=== PATIENT | male | born 1945 | race Caucasian/White ===

== ENCOUNTER 2018-04-15 09:41 | Emergency (ER) | payer MEDICARE, SELFPAY ==
--- NOTE | 2018-04-15 09:35 | DI.CT_ITS ---
SYMPTOM/DIAGNOSIS: LEFT SIDED WEAKNESS, LAST NIGHT CRANIAL CT: 04/[address] was performed. There is mild generalized cerebral atrophy. There is no evidence of acute intracranial hemorrhage, mass effect or midline shift. Note is made of increased radiodensity of right middle cerebral artery raising the possibility of embolic or thrombotic phenomenon. The orbital and temporal bone structures appear intact. CONCLUSION: No evidence of acute intracranial hemorrhage. Findings raising the possibility of acute thrombus or embolus of right middle cerebral artery. The findings were discussed with Dr. Grimes and CT angiography of the head and neck is planned.
[2018-04-15 10:03] VITALS: BP 140/75; PULSE 82; RESP 20; TEMP 36.4; O2SAT 98
--- NOTE | 2018-04-15 10:09 | W.ED.GENAD ---
Discharge Plan Discharge Details Chief Complaint: CVA/TIA Reason For Visit: SEVEN Primary Care Provider: Shefali Chilel ED Provider: Jcalros Grimes Home Meds and New Rx's Prescriptions: No Action losartan 50 mg Tablet 50 mg PO BID RF: 0 aspirin 325 mg Tablet 325 mg PO DAILY RF: 0 tamsulosin 0.4 mg Capsule 0.8 mg/day PO DAILY RF: 0 atenolol 50 mg Tablet 50 mg PO DAILY RF: 0 Discharge Data Discharge Date/Time-TO BE ENTERED AT DEPARTURE: 04/15/18 12:01 Medical Decision Making 10:15 --patient was seen immediately on arrival and rushed to stat CT of the head. CT reviewed and interpreted by me: Atrial fibrillation 75 bpm, normal axis, QRS duration 96. 72-year-old male with history of atrial fibrillation, hypertension, recently diagnosed thoracic aortic aneurysm at 5.4 cm with plan for urgent surgery that is yet to be scheduled, here today with severe left-sided weakness and left facial droop that started sometime after 9 PM last night. NIH stroke scale 10. 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 Plan for CTA of the head neck and will also obtain chest and abdomen to assess aneurysm. Patient received full dose aspirin by family prior to EMS arrival. He is outside therapeutic window for thrombolytic. He still is within window for clot extraction. I have called [facility] to request stat transfer for neurologic evaluation. 10:51 -- Spoke with Dr. Diaz neurology: will accept in transfer. Recommends NS 250ml bolus. Checking on [facility] air. 11:04 -- [facility] available and will be flying to accept patient. -- Spoke with Dr. Weiner - [facility] who will accept patient. 11:10 -- Spoke with radiology: Included right MCA M1 segment. 53 mm ascending aortic aneurysm without dissection. Incidental right lung nodules noted with recommended follow-up CT in 6 months HPI General Mode of arrival: ambulatory. Date/Time Provider Initiated Documentation: 04/15/18 09:59. Limitations to Documentation: no limitations. Information obtained by: patient. HPI Narrative: 72yo m with recently diagnosed 5.4 cm thoracic aortic aneurysm, hypertension, atrial fibrillation, presents with left-sided weakness. Patient apparently was last normal at 9 PM last night. He did have a fall last night. Family noted that left facial droop this AM with left sided weakness at 4am. Symptoms persisted this AM and EMS was called. Symptoms severe. No modifiers. Patient denies associated chest pain. Related Data Home Medications Medication Instructions Recorded Confirmed aspirin 325 mg PO DAILY 04/15/18 04/15/18 atenolol 50 mg PO DAILY 04/15/18 04/15/18 losartan 50 mg PO BID 04/15/18 04/15/18 tamsulosin 0.8 mg/day PO DAILY 04/15/18 04/15/18 Allergies Allergy/AdvReac Type Severity Reaction Status Date / Time No Known Allergies Allergy Unverified 04/15/18 10:18 General Stated Complaint: CVA/TIA CHULA: 2 Review of Systems Review of Systems All systems reviewed & are unremarkable except as noted in HPI and below Neurologic Reports as per HPI PFSH Medical History Atrial fibrillation (Chronic) Hypertension (Chronic) Thoracic aortic aneurysm (Chronic) Social History Smoking/Tobacco Use Status: Never Exam Const General: cooperative and no acute distress HENMT Head: normocephalic and atraumatic Mouth: moist mucous membranes Eyes Conjunctivae: normal conjunctivae Sclera: normal sclerae EOM: EOM intact bilaterally Neck Neck: trachea midline and supple Resp Auscultation: clear to auscultation bilaterally, no rales, no rhonchi and no wheezes Cardio Jugular venous pressure: no JVD Rate: regular rate and not tachycardic Rhythm: regular rhythm Heart Sounds: murmur systolic III/ GI Palpation: soft, not firm, no guarding, no masses, not rigid and nontender Skin General skin exam: no rashes or lesions noted Neuro General: alert, oriented x3 and tone normal Cranial Nerves: other (asleep but arousable) Cognition: normal cognition Speech: speech normal Motor: other (0/5 LUE; 2/5 LLE, eye deviation to right) Sensory Exam: no sensory deficits noted Extrem General: no edema Psych Appearance: grossly normal Course Vital Signs Temperature 36.4 C L 04/15/18 10:03 Pulse 82 04/15/18 10:03 Respiratory Rate 20 04/15/18 10:03 Blood Pressure 140/75 04/15/18 10:03 Pulse Oximetry 98 04/15/18 10:03 Temperature 36.4 C L 04/15/18 10:03 Temperature Source Skin 04/15/18 10:03 Pulse 82 04/15/18 10:03 Respiratory Rate 20 04/15/18 10:03 Respiratory Effort 04/15/18 10:03 Blood Pressure 140/75 04/15/18 10:03 Pulse Oximetry 98 04/15/18 10:03 Oxygen Delivery Method Room Air 04/15/18 10:03 Oxygen Flow Rate 0 04/15/18 10:03
[2018-04-15 10:11] LABS: Abs Immature Grans 0.01 k/cumm (0.0-0.09); Absolute Basophil Count 0.04 k/cumm (0.0-0.2); Absolute Eosinophil Count 0.26 k/cumm (0.0-0.7); Absolute Lymphocyte Count 1.85 k/cumm (1.2-3.4); Absolute Neutrophil Count 5.05 k/cumm (1.2-6.7); Basophils % 0.5; Eosinophils % 3.3; HCT 44.4 % (40.0-50.0); HGB 14.9 g/dL (13.5-17.5); Immature Grans % 0.1; Lymphocytes % 23.4; Mean Corp. HGB Concentration 33.6 g/dL (32.0-36.0); Mean Corpuscular Hemoglobin 33.8 pg (27.0-33.0); Mean Corpuscular Volume 100.7 fL (80-95); Mean Platelet Volume 11.7 fL (8.0-11.0); Monocytes % 8.8; Neutrophils % 63.9; Platelet Count 160 x1000/uL (130-400); RBC 4.41 m/cumm (4.50-6.00); RBC Distribution Width 12.6 % (11.8-14.1); White Blood Cell Count 7.91 k/cumm (4.4-10.8)
[2018-04-15 10:12] VITALS: BP 133/76; PULSE 77; RESP 20; O2SAT 94
--- NOTE | 2018-04-15 10:12 | ED.GENADUL_ITS ---
Discharge Plan Discharge Details Chief Complaint: CVA/TIA Reason For Visit: SEVEN Primary Care Provider: Shefali Chilel ED Provider: Jcarlos Grimes Home Meds and New Rx's Prescriptions: No Action losartan 50 mg Tablet 50 mg PO BID RF: 0 aspirin 325 mg Tablet 325 mg PO DAILY RF: 0 tamsulosin 0.4 mg Capsule 0.8 mg/day PO DAILY RF: 0 atenolol 50 mg Tablet 50 mg PO DAILY RF: 0 Discharge Data Discharge Date/Time-TO BE ENTERED AT DEPARTURE: 04/15/18 12:01 Medical Decision Making 10:15 --patient was seen immediately on arrival and rushed to stat CT of the head. CT reviewed and interpreted by me: Atrial fibrillation 75 bpm, normal axis, QRS duration 96. 72-year-old male with history of atrial fibrillation, hypertension, recently diagnosed thoracic aortic aneurysm at 5.4 cm with plan for urgent surgery that is yet to be scheduled, here today with severe left-sided weakness and left facial droop that started sometime after 9 PM last night. NIH stroke scale 10. 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 Plan for CTA of the head neck and will also obtain chest and abdomen to assess aneurysm. Patient received full dose aspirin by family prior to EMS arrival. He is outside therapeutic window for thrombolytic. He still is within window for clot extraction. I have called [facility] to request stat transfer for neurologic evaluation. 10:51 -- Spoke with Dr. Diaz neurology: will accept in transfer. Recommends NS 250ml bolus. Checking on [facility] air. 11:04 -- [facility] available and will be flying to accept patient. -- Spoke with Dr. Weiner - [facility] who will accept patient. 11:10 -- Spoke with radiology: Included right MCA M1 segment. 53 mm ascending aortic aneurysm without dissection. Incidental right lung nodules noted with recommended follow-up CT in 6 months HPI General Mode of arrival: ambulatory . Date/Time Provider Initiated Documentation: 04/15/18 09:59 . Limitations to Documentation: no limitations . Information obtained by: patient . HPI Narrative: 72yo m with recently shena gnosed 5.4 cm thoracic aortic aneurysm, hypertension, atrial fibrillation, presents with left-sided weakness. Patient apparently was last normal at 9 PM last night. He did have a fall last night. Family noted that left facial droop this AM with left sided weakness at 4am. Symptoms persisted this AM and EMS was called. Symptoms severe. No modifiers. Patient denies associated chest pain. Related Data Home Medications Medication Instructions Recorded Confirmed aspirin 325 mg PO DAILY 04/15/18 04/15/18 atenolol 50 mg PO DAILY 04/15/18 04/15/18 losartan 50 mg PO BID 04/15/18 04/15/18 tamsulosin 0.8 mg/day PO DAILY 04/15/18 04/15/18 Allergies Allergy/AdvReac Type Severity Reaction Status Date / Time No Known Allergies Allergy Unverified 04/15/18 10:18 General Stated Complaint: CVA/TIA CHULA: 2 Review of Systems Review of Systems All systems reviewed & are unremarkable except as noted in HPI and below Neurologic Reports as per HPI PFSH Medical History Atrial fibrillation (Chronic) Hypertension (Chronic) Thoracic aortic aneurysm (Chronic) Social History Smoking/Tobacco Use Status: Never Exam Const General: cooperative and no acute distress HENMT Head: normocephalic and atraumatic Mouth: moist mucous membranes Eyes Conjunctivae: normal conjunctivae Sclera: normal sclerae EOM: EOM intact bilaterally Neck Neck: trachea midline and supple Resp Auscultation: clear to auscultation bilaterally, no rales, no rhonchi and no wheezes Cardio Jugular venous pressure: no JVD Rate: regular rate and not tachycardic Rhythm: regular rhythm Heart Sounds: murmur systolic III/ GI Palpation: soft, not firm, no guarding, no masses, not rigid and nontender Skin General skin exam: no rashes or lesions noted Neuro General: alert, oriented x3 and tone normal Cranial Nerves: other (asleep but arousable) Cognition: normal cognition Speech: speech normal Motor: other (0/5 LUE; 2/5 LLE, eye deviation to right) Sensory Exam: no sensory deficits noted Extrem General: no edema Psych Appearance: grossly normal Course Vital Signs Temperature 36.4 C L 04/15/18 10:03 Pulse 82 04/15/18 10:03 Respiratory Rate 20 04/15/18 10:03 Blood Pressure 140/75 04/15/18 10:03 Pulse Oximetry 98 04/15/18 10:03 Temperature 36.4 C L 04/15/18 10:03 Temperature Source Skin 04/15/18 10:03 Pulse 82 04/15/18 10:03 Respiratory Rate 20 04/15/18 10:03 Respiratory Effort 04/15/18 10:03 Blood Pressure 140/75 04/15/18 10:03 Pulse Oximetry 98 04/15/18 10:03 Oxygen Delivery Method Room Air 04/15/18 10:03 Oxygen Flow Rate 0 04/15/18 10:03
--- NOTE | 2018-04-15 10:12 | NUR.NOTE ---
patient arrived to ER at 0940, assessed on ems stretcher by MD, patient to CT, returned to room 2 labs sent ekg done fsbs documented. patient to have CTA Nursing Note:
[2018-04-15 10:30] LABS: ALT 24 U/L (12-78); AST 24 U/L (15-37); Albumin 3.5 g/dL (3.4-5.0); Alkaline Phosphatase 61 U/L (46-116); Anion Gap 7.2 mmol/L (3-11); BUN 21 mg/dL (7-18); Bilirubin, Total 1.4 mg/dL (0.2-1.0); CO2 28.8 mmol/L (21.0-32.0); CREATININE 1.22 mg/dL (0.70-1.30); Calcium 9.6 mg/dL (8.5-10.1); Chloride 104 mmol/L (98-107); Estimated GFR 58.23 (mL/min/1.73m2); Glucose 132 mg/dL (70-100); Potassium 4.4 mmol/L (3.5-5.1); Sodium 140 mmol/L (136-145); Total Protein 7.3 g/dL (6.4-8.2)
[2018-04-15 10:37] LABS: Troponin I 1.18 ng/mL (0.00-0.06)
--- NOTE | 2018-04-15 10:45 | DI.CT_ITS ---
SYMPTOMS/DIAGNOSIS: LEFT-SIDED WEAKNESS, CT WITH EMBOLISM CT ANGIOGRAPHY, NECK AND BRAIN: CT angiography was performed with multi slice acquisition and multi planar and 3D reconstruction. CT angiography was performed from the level of the aortic arch to the cerebral vertex. There is mild atheromatous calcified plaque of the aortic arch. No aortic aneurysm or dissection. There is a left dominant vertebral circulation with a very small right vertebral artery. No occlusion, aneurysm or dissection of the vertebral arteries. The basilar artery is supplied predominantly from left vertebral artery. No evidence of an aneurysm, dissection or occlusion of the basilar artery. The posterior cerebral arteries are quite small bilaterally, but appear patent and no aneurysm is seen. Common carotid arteries are unremarkable in appearance bilaterally. Internal carotid arteries appear intact through their extracranial and intracranial extent with no evidence of occlusion, dissection or stenosis. Left middle and anterior cerebral arteries and major branches appear intact. Right middle cerebral artery appears to be occluded in the M1 segment, as suspected on noncontrast CT. There is reconstitution of sylvian and parietal branches of the right middle cerebral artery. No gross cervical mass or adenopathy seen. No superior mediastinal adenopathy. Visualized portions of the lung apices are clear. Tracheolaryngeal structures appear intact. CONCLUSION: Findings consistent with occlusion of right middle cerebral artery M1 segment. CT ANGIOGRAPHY, CHEST AND ABDOMEN: CT angiography was performed with multi slice acquisition and multi planar and 3D reconstruction. CT angiography of the chest and abdomen was performed with a bolus infusion of 100 cc of Omnipaque 350. The lungs are predominantly clear with some questionable curvilinear or nodular radiodensities at the right lung base measuring up to about 7 mm in diameter. No previous CT available for comparison at this time. No consolidation seen in the lungs. The tracheobronchial tree appears intact. No mediastinal or hilar adenopathy seen. There is an ascending aortic aneurysm measuring 53 mm in greatest diameter. Aortic arch diameter is about 34 mm. No evidence of dissection or leakage. In the abdomen, there is no evidence of an abdominal aortic aneurysm or aneurysm of the common iliac arteries. Major branches of the abdominal aorta including celiac trunk, SMA, ANGELLA and renal arteries appear within normal limits with no evidence of occlusion or dissection. Liver, spleen and pancreas appear intact as visualized. Kidneys and adrenals are unremarkable. No abdominal adenopathy seen. No evidence of bowel obstruction. CONCLUSION: A 53 mm in diameter ascending aortic aneurysm. No evidence of dissection or leakage. Incidental questionable nodules of right lung base, CT followup recommended in six months.
[2018-04-15] MEDS: Omnipaque 350 MG/ML 100 ML BTL IJ (10:48)
[2018-04-15 11:07] VITALS: BP 145/67; PULSE 75; RESP 19; O2SAT 96
--- NOTE | 2018-04-15 11:08 | NUR.NOTE ---
patient returned from Ct, contiued left arm flaccid, left leg weakness and left sided facial droop, patient is drwosy Nursing Note:
[2018-04-15] MEDS: Normal Saline 250 ML 500 ML IV (11:10)
[2018-04-15 11:57] VITALS: BP 130/90; PULSE 78; RESP 18; O2SAT 95
--- NOTE | 2018-04-15 11:57 | NUR.NOTE ---
report given to [facility] flight crew, patient to be transfered in care of [facility], report given to Wing [facility] RN Nursing Note:
== END 2018-04-15 12:01 ==
PROVIDERS: Emergency Provider Student in an Organized Health Care Education/Training Program; PCP Internal Medicine
DX: I63.411 Cerebral infarction due to embolism of right middle cerebral artery (principal); I69.392 Facial weakness following cerebral infarction; I69.354 Hemiplegia and hemiparesis following cerebral infarction affecting left non-dominant side; I71.2 Thoracic aortic aneurysm, without rupture; I48.91 Unspecified atrial fibrillation; I10 Essential (primary) hypertension
CPT/HCPCS: 36415; 36416; 70496; 70498; 71275; 74175; 80053; 82962; 99285; 70450; 83735; 84484; 85025; J3490

== ENCOUNTER 2018-10-03 10:18 | Outpatient (RCR) | payer MEDICARE, SELFPAY | END 2018-10-20 23:59 | disposition home or self-care (01) | LOC: CR 10:18 | PROVIDERS: PCP Internal Medicine; Visit Provider Family Medicine | DX: Z51.89 Encounter for other specified aftercare (principal) ==

== ENCOUNTER 2018-10-22 19:31 | Outpatient (RCR) | payer MEDICARE, SELFPAY | END 2018-11-20 23:59 | disposition home or self-care (01) | LOC: CR 19:31 | PROVIDERS: PCP Internal Medicine; Visit Provider Family Medicine | DX: Z51.89 Encounter for other specified aftercare (principal); Z95.2 Presence of prosthetic heart valve; I10 Essential (primary) hypertension; I48.91 Unspecified atrial fibrillation ==

== ENCOUNTER 2018-11-21 04:21 | Outpatient (RCR) | payer MEDICARE, SELFPAY | END 2018-12-21 23:59 | disposition home or self-care (01) | LOC: CR 04:21 | PROVIDERS: PCP Internal Medicine; Visit Provider Family Medicine | DX: Z95.2 Presence of prosthetic heart valve (principal); I10 Essential (primary) hypertension; I48.91 Unspecified atrial fibrillation; Z51.89 Encounter for other specified aftercare ==

== ENCOUNTER 2022-05-05 00:43 | Emergency (ER) | payer MEDICARE, SELFPAY ==
[2022-05-05] VITALS (34 sets, daily range): BP systolic 64–162; BP diastolic 39–100; PULSE 80–156; RESP 14–33; TEMP 37–37.2; O2SAT 91–98
--- NOTE | 2022-05-05 | RT.EKG_ITS ---
APPROVED REPORT Exam: Resting ECG Reason for Exam: AMS Patient Location: E HR:148 bpm ECG Measurements Heart Rate 148 AXIS PA 89 P 14 QRSd 95 QRS 3 QT 315 T 151 QTc 493 Conclusion Supraventricular tachycardia...V-rate>(220-age), QRSd<120 Repolarization abnormality, prob rate related...ST dep, T neg, tachycardia Physician: st depression in the lateral leads
--- NOTE | 2022-05-05 00:45 | DI.CT_ITS ---
Exam(s) CT HEAD WO EXAM: CT HEAD WO CLINICAL HISTORY: ams, recent shingles, r/o stroke/abscess. TECHNIQUE: Imaging Protocol: Axial computed tomography images with coronal and sagittal reformatted images were created and reviewed FINDINGS: Ventricles and Extra axial spaces: Normal in size and morphology for the patient's age. Hemorrhage: None. Cerebral parenchyma: No acute territorial infarct is seen. 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 Midline shift: None. Brainstem/Cerebellum: Normal. Calvarium: Normal. Visualized Paranasal sinuses/Mastoids: Clear. Soft Tissues: Unremarkable. IMPRESSION: No acute intracranial process. RADIATION DOSE DELIVERED: 805.52mGy.cm Total DLP DATA REPOSITORY: All CT scans at this facility are submitted to the National Radiology Data Registry (NRDR) Dose Index Registry (DIR) with the [employer] ([employer]). RADIATION OPTIMIZATION: All CT scans at this facility use at least one of these dose optimization te chniques: automated exposure control; mA and/or kV adjustment per patient size (includes targeted exa ms where dose is matched to clinical indication); or iterative reconstruction.
[2022-05-05] MEDS: Normal Saline 1,000 ML 1000 ML IV ×2 (00:54→01:00)
[2022-05-05] MEDS: Lidocaine 2% Jelly 6 ML SYR (01:00)
--- NOTE | 2022-05-05 01:00 | DI.CT_ITS ---
Exam(s) CT CHEST PE CTA EXAM: CT CHEST PE CTA CLINICAL HISTORY: fever, thoracic anyurism, hypoxic. TECHNIQUE: Imaging Protocol: Axial CT angiography was performed with multi-slice acquisition and mu lti-planar and/or 3D reconstructions. CONTRAST MATERIAL: Intravenous: Omnipaque 350 contrast volume:100 mL FINDINGS: The examination is limited due to patient motion artifact. Tracheobronchial tree: Patent where visualized. Pulmonary parenchyma: There is dependent atelectasis in the lung bases. No architectural distortion. Pulmonary Arteries: There is suboptimal imaging of the segmental and subsegmental pulmonary arteries due to patient motion artifact. No central pulmonary embolus is present. Mediastinum and Jessica: No dominant adenopathy or fluid collection. The esophagus is unremarkable. Visualized thyroid gland: Unremarkable. Pleura: No effusion or pneumothorax. Heart: Cardiomegaly. Mild coronary artery calcification is present. 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 No pericardial effusion. Aorta: The ascending aorta measures 4.3 x 4.3 cm. No evidence of dissection. Soft tissues: Unremarkable. Bones: Within normal limits for the patient's age.Sternal wires are in place. IMPRESSION: 1. Examination limited by patient motion artifact. There is suboptimal imaging of the segmental and subsegmental pulmonary arteries as a result. 2. Within the limits of the examination, no central pulmonary embolus is identified. 3. Bilateral basilar atelectasis. RADIATION DOSE DELIVERED: 500.02mGy.cm Total DLP DATA REPOSITORY: All CT scans at this facility are submitted to the National Radiology Data Registry (NRDR) Dose Index Registry (DIR) with the [employer] ([employer]). RADIATION OPTIMIZATION: All CT scans at this facility use at least one of these dose optimization te chniques: automated exposure control; mA and/or kV adjustment per patient size (includes targeted exa ms where dose is matched to clinical indication); or iterative reconstruction.
[2022-05-05 01:02] LABS: Abs Immature Grans 0.12 10^3/uL (0.0-0.06); Absolute Lymphocyte Count 0.58 10^3/uL (1.2-3.4); Absolute Monocyte Count 0.31 10^3/uL (0.1-0.8); Basophils % 0.3; Eosinophils % 0.1; HCT 38.9 % (40.0-50.0); HGB 13.1 g/dL (13.5-17.5); Immature Grans % 0.6; MCHC 33.7 % (32.0-36.0); MCV 98 fL (80-95); MPV 11.1 fL (8.0-11.0); Monocytes % 1.6; Neutrophils % 94.4; Platelet Count 117 10^3/uL (130-400); RBC 3.97 10^6/uL (4.36-5.78); RDW 13.6 % (11.8-14.1); RDW-SD 48.1 fL; WBC 19.31 10^3/uL (4.4-10.8)
--- NOTE | 2022-05-05 01:07 | ED.GENADUL_ITS ---
Discharge Plan Disposition Patient Disposition: Transfer-Acute Inpatient Care Specific Acute Inpt Facility: [facility] Condition: Critical Condition: Critical Discharge Details Chief Complaint: AMS/LOC Clinical Impression: Acute cholecystitis, Septic shock, Dehydration, Non-ST elevation AR (NSTEMI), Altered mental status Primary Care Provider: Shefali Chilel ED Provider: Deshawn Venegas Home Meds and New Rx's Prescriptions: No Action metoprolol tartrate 100 mg tablet 100 mg PO BID Label Comments: TAKE ONE TABLET BY MOUTH TWICE A DAY valsartan 80 mg tablet 40 mg PO DAILY Label Comments: TAKE ONE TABLET BY MOUTH EVERY DAY Eliquis 5 mg tablet 5 mg PO BID Label Comments: TAKE 2 TABLETS BY MOUTH TWICE A DAY FOR 7 DAYS THEN TAKE 1 TABLET BY MOUTH TWICE A DAY THEREAFTER tamsulosin 0.4 mg Capsule 0.8 mg/day PO DAILY Medical Decision Making This is a 76-year-old gentleman from [place] who does not speak [place] well, with a past medical history of embolic stroke in 2018, atrial fibs, thoracic aortic aneurysm that was surgically repaired in 2019, aortic valve replacement in 2019, chronic anticoagulation on Eliquis, hypertension, hip replacement, who recently was treated for shingles over the last week with acyclovir and prednisone, presents today for altered mental status. Family is at bedside, they speak [place] well, they state that for the last week the patient developed shingles on the left side of his face and neck, he was complaining of a mild headache at the time. Over the last 48 hours though the patient's illness seem to worsen, he became weaker, more confused, and more out of it. Family admits to a fever today and yesterday. This evening he was noted to be notably altere d, EMS were called, and the patient was brought here to the ER for further assessment. Unfortunately secondary to the notable inclement weather of snow and ice EMS was delayed and arriving here because they are not able to get up the hill. Patient does not have any complaints currently, no recent antibiotics. No other modifying factors.This is a 76-year-old gentleman from [place] who does not speak [place] well, with a past medical history of embolic stroke in 2018, atrial fibs, thoracic aortic aneurysm that was surgically repaired in 2019, aortic valve replacement in 2019, chronic anticoagulation on Eliquis, hypertension, hip replacement, who recently was treated for shingles over the last week with acyclovir and prednisone, presents today for altered mental status. Family is at bedside, they speak [place] well, they state that for the last week the patient developed shingles on the left side of his face and neck, he was complaining of a mild headache at the time. Over the last 48 hours though the patient's illness seem to worsen, he became weaker, more confused, and more out of it. Family admits to a fever today and yesterday. This evening he was noted to be notably altered, EMS were called, and the patient was brought here to the ER for further assessment. Unfortunately secondary to the notable inclement weather of snow and ice EMS was delayed and arriving here because they are not able to get up the hill. Patient does not have any complaints currently, no recent antibiotics. No other modifying factors. Physical exam demonstrates a tachycardic slightly hypotensive male, somewhat altered with a GCS of 12. Patient is afebrile here. He is tachypneic, oxygenation around 91%. Lungs are surprisingly clear but slightly diminished. Does not appear to have definite nuchal rigidity on exam. Mild shingles rash on the left neck. No other significant rashes. Differential is high for pneumonia, UTI and sepsis. Meningitis is on the differential. Patient would not be a good lumbar puncture candidate secondary to his Eliquis that he is on. We will start broad spectrum antibiotic and antiviral coverage with vancomycin, Zosyn, azithromycin and acyclovir. We will monitor closely, and reassess. 3:52 AM Patient's blood pressure unfortunately steadily declined during his stay. This is in spite of 2-1/2 to 3 L of normal saline being given. Decision was made to place a central line for access and pressor support if needed. Because the patient is on Eliquis, the decision was made to avoid the neck and subclavian and instead put in a left femoral line. This was placed without complication. Patient is certainly a bit more arousable now. GCS is 13-14. Heart rate has improved from the 1 4050s down to the low 100s. Laboratory work-up shows a white count of 19, notable left shift, lactate of 3.4, electrolytes stable, creatinine slightly elevated at 1.6, bilirubin notably elevated at 3. Troponin normal, procalcitonin high at 2.4. Urinalysis is negative for evidence of infection. COVID/flu/RSV are negative. Pending imaging studies. CT scan of the head is negative for acute process though. Additionally we did elect to start Solu-Cortef out of concern for potential adrenal insufficiency secondary to the patient's recent completion of steroids and acyclovir for shingles. 5:[address] scan of the chest shows evidence of atelectasis but no focal pneumonia. CT scan of the abdomen demonstrates evidence of acute cholecystitis. I suspect this is the source of the patient's infection. Unfortunately the patient's blood pressure continued to decline, decision was made to perform a left femoral central line. Procedure was completed without complication. Levophed was started on the patient. We did contact the surgeon on-call, Dr. Menon, she was concerned that the patient's complexity would not be appropriate for SICU admission here or surgery. We did reach out to [facility], [place], [place], [facility], [facility], [place], all of which declined transfer secondary to current capacity issues. [place] did accept the patient. Initially [facility] was full and unable to accept but when we called them back they were able to accept. I discussed the case with Dr. Vo, and Dr. Ruano of surgery. They agree with the plan and recommend transfer. Patient will be transferred via supervisor machining down to [facility]. Currently [facility] is not flying. I have extensively reviewed the treatment plan with the patient. I have addressed all patient concerns at this time. I have also discussed the plan with the admitting physician and they agree with the current assessment and plan and have agreed to assume responsibility for the patient. All parties demonstrate verbal understanding and agreement with our assessment and plan at this time. The documentation in this chart was dictated using [employer] dictation software. Please excuse any dictation errors. Of note the patient's respiratory status remained stable on 6 L of facial mask oxygen. No indication for intubation at this time. PLEASE CALL DAYRON HARO at [phone] FINDINGS: Brain: Old right temporal lobe infarct. Old lacunar infarct in right basal ganglia. Small old right cerebellar infarct. Cerebral ventricles: No ventriculomegaly. Paranasal sinuses: Visualized sinuses are unremarkable. No fluid levels. Mastoid air cells: Visualized mastoid air cells are well aerated. Orbital cavities: Orbits are unremarkable. No orbital hematoma. No mass lesion. No proptosis. Oculomotor muscles and optic nerves are unremarkable. Orbital globes are intact. No evidence of globe rupture. Bones/joints: Unremarkable. No acute fracture. Soft tissues: Unremarkable. IMPRESSION: 1. No evidence of acute pathology. 2. Old right temporal lobe infarct. Old lacunar infarct in right basal ganglia 3. Small old right cerebellar infarct. ASSESSMENT: ASPECTS ([place] Stroke Program Early CT Score) is 10. Thank you for allowing us to participate in the care of your patient. Dictated and Authenticated by: Hawa White MD 05/05/2022 2:11 AM Eastern Time ([place] & [place]) FINDINGS: Pulmonary arteries: No acute pulmonary emboli within the mid and upper lobe pulmonary arteries. Evaluation of the lower lobe pulmonary arteries is limited, secondary to motion artifact. Aorta: Atherosclerotic disease of the thoracic aorta. Lungs: Mild bibasilar atelectasis. Pleural spaces: Unremarkable. No pneumothorax. No pleural effusion. Heart: Changes of prior sternotomy with aortic valve repair and ascending thoracic aorta graft. Lymph nodes: Unremarkable. No enlarged lymph nodes. Bones/joints: See Heart finding. Soft tissues: Unremarkable. IMPRESSION: 1. No acute thoracic abnormality. 2. No acute pulmonary emboli within the mid and upper lobe pulmonary arteries. Evaluation of the lower lobe pulmonary arteries is limited, secondary to motion artifact. Thank you for allowing us to participate in the care of your patient. Dictated and Authenticated by: Jeremy Falk MD 05/05/2022 2:35 AM Eastern Time ([place] & [place]) FINDINGS: Lungs: Mild bibasilar atelectasis/scarring. Liver: Normal. Gallbladder and bile ducts: Cholelithiasis, with gallbladder enlargement, gallbladder wall thickening, and pericholecystic inflammatory stranding, compatible with acute cholecystitis. No biliary dilation. Pancreas: Normal. Spleen: Normal. Adrenal glands: Normal. No mass. Kidneys and ureters: Normal. Stomach and bowel: Colonic diverticulosis. Appendix: No evidence of appendicitis. Intraperitoneal space: Small amount of intraperitoneal free fluid. 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 Lymph nodes: Unremarkable. No enlarged lymph nodes. Urinary bladder: Urinary bladder decompressed by Melo catheter. Reproductive: Unremarkable as visualized. Bones/joints: Bilateral hip arthroplasties. Soft tissues: Normal. IMPRESSION: Cholelithiasis, with gallbladder enlargement, gallbladder wall thickening, and pericholecystic inflammatory stranding, compatible with acute cholecystitis. No biliary dilation. Thank you for allowing us to participate in the care of your patient. Dictated and Authenticated by: Jeremy Falk MD 05/05/2022 4:36 AM Eastern Time ([place] & [place]) HPI General Mode of arrival: EMS . Date/Time Provider Initiated Documentation: 05/05/22 00:46 . HPI Narrative: This is a 76-year-old gentleman from [place] who does not speak [place] well, with a past medical history of embolic stroke in 2018, atrial fibs, thoracic aortic aneurysm that was surgically repaired in 2019, aortic valve replacement in 2019, chronic anticoagulation on Eliquis, hypertension, hip replacement, who recently was treated for shingles over the last week with acyclovir and prednisone, presents today for altered mental status. Family is at bedside, they speak [place] well, they state that for the last week the patient developed shingles on the left side of his face and neck, he was complaining of a mild headache at the time. Over the last 48 hours though the patient's illness seem to worsen, he became weaker, more confused, and more out of it. Family admits to a fever today and yesterday. This evening he was noted to be notably altered, EMS were called, and the patient was brought here to the ER for further assessment. Unfortunately secondary to the notable inclement weather of snow and ice EMS was delayed and arriving here because they are not able to get up the hill. Patient does not have any complaints currently, no recent antibiotics. No other modifying factors. Related Data Home Medications Medication Instructions Recorded Confirmed tamsulosin 0.4 mg capsule 0.8 mg/day PO DAILY 04/15/18 05/05/22 apixaban 5 mg tablet (Eliquis) 5 mg PO BID 05/05/22 05/05/22 metoprolol tartrate 100 mg tablet 100 mg PO BID 05/05/22 05/05/22 valsartan 80 mg tablet 40 mg PO DAILY 05/05/22 05/05/22 Allergies Allergy/AdvReac Type Severity Reaction Status Date / Time coumarin Allergy Intermediate Skin Rash Unverified 05/05/22 00:49 digoxin AdvReac Visual Unverified 05/05/22 00:49 Disturbances General Stated Complaint: AMS/LOC CHULA: 2 Review of Systems All systems reviewed & are unremarkable except as noted in HPI and below PFSH All Active Problems (Updated 05/05/22 @ 06:17 by Deshawn Venegas DO) Acute cholecystitis (Acute) Septic shock (Acute) Dehydration (Acute) Non-ST elevation AR (NSTEMI) (Acute) Altered mental status (Acute) Atrial fibrillation (Acute 09/30/13) asymptomatic. Noted on echo. Rash from warfarin. Back pain (Acute 10/28/13) Herniated disc and neuropathy, rx epidurals Diabetes mellitus (Acute 09/23/13) Diet controlled Hypertension (Acute 09/30/13) Medical History (Updated 05/05/22 @ 06:17 by Deshawn Venegas DO) Atrial fibrillation Hypertension Thoracic aortic aneurysm Surgical History Total replacement of hip (12/18/05) (R) TITI 2017, (L) TITI 2005 left, not sure of exact date Total replacement of hip (07/23/17) (R) TITI 2018, (L) TITI 2006 left, not sure of exact date Family History Mother Depression Father Alcohol abuse Other Alzheimer disease Social History Smoking/Tobacco Use Status: Never Smoking risk assessment performed?: Yes Drug use: Never Do you feel safe in your relationship?: Yes Exam Narrative Exam Narrative: 1.Const: Well-nourished, Well-developed, appearing stated age 2.Eyes: PERRL, no conjunctival injection, and symmetrical lids. 3.ENT: Atraumatic external nose and ears. Moist MM. Neck: Symmetric, trachea midline, No thyromegaly. There does not appear to be any nuchal rigidity. Difficult to test for Kernig's and Brudzinski's sign patient's current state. 4.CVS: +S1/S2, No murmurs or gallops. Peripheral pulses 2+ and equal in all extremities. Brisk capillary refill in all extremities. 5.RESP: Unlabored respiratory effort. Clear to auscultation bilaterally. No wheezes rales or rhonchi 6.GI: Soft, Nontender/Nondistended, No hepatosplenomegaly. No guarding or rebound. 7.MSK: Normocephalic/Atraumatic, Extremities w/o deformity or ttp No cyanosis or clubbing, Normal movement of all extremities 8.Skin: Warm, Dry. No rashes or lesions. 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 Patient moves all extremities. Patient is somewhat altered right now, GCS is currently 12 10.Psych: (AAO) x0 Course Vital Signs Vital signs: Vital Signs Temperature 37.2 C 05/05/22 00:04 Pulse 156 H 05/05/22 00:04 Respiratory Rate 32 H 05/05/22 00:04 Blood Pressure 110/65 05/05/22 00:04 Pulse Oximetry 91 L 05/05/22 00:04 Temperature 37.2 C 05/05/22 00:04 Temperature Source Temporal Artery Scan 05/05/22 00:04 Pulse 156 H 05/05/22 00:04 Respiratory Rate 32 H 05/05/22 00:04 Respiratory Effort 05/05/22 00:04 Blood Pressure 110/65 05/05/22 00:04 Blood Pressure Position Supine 05/05/22 00:04 Pulse Oximetry 96 05/05/22 00:56 Oxygen Delivery Method Nasal Cannula 05/05/22 00:56 Oxygen Flow Rate 6 05/05/22 00:56 Lab/Test Results Lab/Test Results: 05/05/22 00:51 Blood Blood Culture - Pending 05/05/22 00:51 Blood Blood Culture - Pending Procedures Central Line Placement Left Femoral: Time Out Performed: Yes Patient Placed on Monitor/Pulse Ox: Yes MD Prep: mask, gown and gloves Central Line Prep: Chlorhexidine scrub Local Anesthetic: Lidocaine 1% and with Epi Amount of anesthesia used (mL): 5 Ultrasound Used for Placement: Yes Central Line Lumen Inserted: triple Post Procedure: good blood return, all ports aspirated, flushed, capped and sutured in place with 2-0 silk Post Procedure X-Ray: tip of catheter in good position Patient Tolerated Procedure: well and no complications Complications: none Critical Care Time Critical Care Time Critical Care Time: Yes Total Critical Care Time: 120 Attestation: Upon my evaluation, this patient had a high probability of imminent or life- threatening deterioration, which required my direct attention, intervention, and personal management. I have personally provided 120 minutes of critical care time exclusive of time spent on separately billable procedures. Time includes review of laboratory data, radiology results, discussion with consultants, and monitoring for potential decompensation. Interventions were performed as documented. POCUS Exam (ED) Limited Cardiac Exam DATE OF EXAM: 05/05/22 TIME OF EXAM: 01:58 PROVIDER THAT PERFORMED THE STUDY: Deshawn Venegas IS THIS A REPEAT EXAM DURING THIS ENCOUNTER: no REASON FOR EXAM: Septic Shock VISUALIZED STRUCTURES: Left atrium, Left ventricle, Right ventricle and Interventricular septum VIEW OBTAINED: Parasternal long-axis PERTINENT FINDINGS/IMPRESSION: No LV dysfunction and No pericardial effusion Exam complete Limited Vascular Exam DATE OF EXAM: 05/05/22 TIME OF EXAM: 01:59 PROVIDER THAT PERFORMED THE STUDY: Deshawn Venegas IS THIS A REPEAT EXAM DURING THIS ENCOUNTER: No Vascular Exam: IVC REASON FOR EXAM: Sepsis
[2022-05-05 01:08] LABS: Absolute Basophil Count 0.06 10^3/uL (0.0-0.2); Absolute Eosinophil Count 0.02 10^3/uL (0.0-0.7); Absolute Neutrophil Count 18.23 10^3/uL (1.2-6.7)
[2022-05-05 01:09] LABS: Lactate 3.4 mmol/L (0.6-1.4)
[2022-05-05 01:16] LABS: INR 1.3 (0.9-1.1); Prothrombin Time 12.9 sec (9.3-11.0)
[2022-05-05 01:18] LABS: Bilirubin Negative (Negative); Blood Small (Negative); Clarity Clear (Clear); Glucose Negative (Negative); Ketones Negative (Negative); Leukocyte Esterase Negative (Negative); Nitrite Negative (Negative); Urobilinogen 0.2 EU/dL (Up TO 0.2); pH 5.5 (5-8)
[2022-05-05] MEDS: PIPERACILLIN/TAZO 3.375 GM in Normal Saline 50 ML IVPB (01:18)
[2022-05-05 01:21] LABS: Bacteria Few HPF (Negative); C & S Indicated? No; Casts Negative LPF (Negative); Crystals Negative HPF (Negative); Epithelial Cells Few HPF (Negative); Mucus Trace (Negative); WBC Negative HPF (0-5)
[2022-05-05 01:23] LABS: ALT 39 U/L (16-63); AST 27 U/L (15-37); Albumin 3.5 g/dL (3.4-5.0); Alkaline Phosphatase 65 U/L (46-116); BUN 31 mg/dL (7-18); CREATININE 1.6 mg/dL (0.70-1.30); Calcium 9.1 mg/dL (8.5-10.1); Chloride 100 mmol/L (98-107); Glucose 190 mg/dL (74-106); Potassium 3.6 mmol/L (3.5-5.1); Sodium 133 mmol/L (136-145); Total Protein 7.6 g/dL (6.4-8.2); Troponin I 54 ng/L (<or=60)
[2022-05-05 01:27] LABS: PTT Activated 26.3 sec (21.0-27.5)
[2022-05-05] MEDS: AZITHROMYCIN 500 MG in Normal Saline 250 ML 250 MG IVPB (01:27)
[2022-05-05 01:37] LABS: COVID-19 PCR Negative (Negative); Influenza A PCR Negative (Negative); Influenza B PCR Negative (Negative); RSV PCR Negative (Negative); Source Nasopharynx
[2022-05-05 01:38] LABS: Procalcitonin 2.4 ng/mL
[2022-05-05] MEDS: Omnipaque 350 MG/ML 100 ML BTL IJ ×2 (01:59→04:21)
[2022-05-05] MEDS: Normal Saline - Diluent 50 ML VIAL IV ×2 (02:00→04:21)
[2022-05-05] MEDS: VANCOMYCIN 2,000 MG in Normal Saline 500 ML 333.3333 MG IVPB (02:05)
--- NOTE | 2022-05-05 02:11 | DI.VRAD_ITS ---
PROCEDURE INFORMATION: Exam: CT Head Without Contrast Exam date and time: 05/05/2022 1:50 AM Age: 76 years old Clinical indication: Stroke-like symptoms; Other: AMS, recent shingles, R/O stroke/abscess TECHNIQUE: Imaging protocol: Computed tomography of the head without contrast. Radiation optimization: All CT scans at this facility use at least one of these dose optimization techniques: automated exposure control; mA and/or kV adjustment per patient size (includes targeted exams where dose is matched to clinical indication); or iterative reconstruction. Other technique: STROKE PROTOCOL was implemented. COMPARISON: CT Head^HEAD ROUTINE (Adult) 04/15/2018 9:38 AM FINDINGS: Brain: Old right temporal lobe infarct. Old lacunar infarct in right basal ganglia. Small old right cerebellar infarct. Cerebral ventricles: No ventriculomegaly. Paranasal sinuses: Visualized sinuses are unremarkable. No fluid levels. Mastoid air cells: Visualized mastoid air cells are well aerated. Orbital cavities: Orbits are unremarkable. No orbital hematoma. No mass lesion. No proptosis. Oculomotor muscles and optic nerves are unremarkable. Orbital globes are intact. No evidence of globe rupture. Bones/joints: Unremarkable. No acute fracture. Soft tissues: Unremarkable. IMPRESSION: 1. No evidence of acute pathology. 2. Old right temporal lobe infarct. Old lacunar infarct in right basal ganglia. 3. Small old right cerebellar infarct. ASSESSMENT: ASPECTS ([place] Stroke Program Early CT Score) is 10. Dictated and Authenticated by: Hawa White MD. Ordering:VICENTA Hess MD
[2022-05-05] MEDS: Normal Saline 1,000 ML 125 ML IV (02:20)
--- NOTE | 2022-05-05 02:35 | DI.VRAD_ITS ---
PROCEDURE INFORMATION: Exam: CTA Chest With Contrast Exam date and time: 05/05/2022 1:52 AM Age: 76 years old Clinical indication: Fever and other: Fever, thoracic aneurysm, hypoxic TECHNIQUE: Imaging protocol: Computed tomographic angiography of the chest with contrast. 3D rendering (Not supervised by radiologist): MIP and/or 3D reconstructed images were created by the technologist. Radiation optimization: All CT scans at this facility use at least one of these dose optimization techniques: automated exposure control; mA and/or kV adjustment per patient size (includes targeted exams where dose is matched to clinical indication); or iterative reconstruction. Contrast material: OMNI 350; Contrast volume: 100 ml; Contrast route: INTRAVENOUS (IV); COMPARISON: Vascular^CTA CAP (Adult) 04/15/2018 10:47 AM FINDINGS: Pulmonary arteries: No acute pulmonary emboli within the mid and upper lobe pulmonary arteries. Evaluation of the lower lobe pulmonary arteries is limited, secondary to motion artifact. Aorta: Atherosclerotic disease of the thoracic aorta. Lungs: Mild bibasilar atelectasis. Pleural spaces: Unremarkable. No pneumothorax. No pleural effusion. Heart: Changes of prior sternotomy with aortic valve repair and ascending thoracic aorta graft. Lymph nodes: Unremarkable. No enlarged lymph nodes. Bones/joints: See Heart finding. Soft tissues: Unremarkable. IMPRESSION: 1. No acute thoracic abnormality. 2. No acute pulmonary emboli within the mid and upper lobe pulmonary arteries. Evaluation of the lower lobe pulmonary arteries is limited, secondary to motion artifact. Dictated and Authenticated by: Jeremy Falk MD. Ordering:VICENTA Hess MD
--- NOTE | 2022-05-05 03:45 | DI.CT_ITS ---
Exam(s) CT ABDOMEN PELVIS W EXAM: CT ABDOMEN PELVIS W CLINICAL HISTORY: vomiting, septic, elevated bili TECHNIQUE: Imaging Protocol: Axial computed tomography images with coronal and sagittal reformatted images were created and reviewed CONTRAST MATERIAL: Intravenous: Omnipaque 350 Contrast volume:100 mL Oral: No FINDINGS: The examination is limited due to patient motion artifact. ABDOMEN: Lung Bases: Cardiomegaly, aortic valve replacement, bilateral basilar atelectasis. Liver: There is decreased attenuation of the liver suggesting fatty infiltration. No measurable mass . Portal, Superior Mesenteric, and Splenic Veins: Unremarkable. Gallbladder and Biliary Tract: There appears to be some layering debris in the fundus of the gallblad bro. This may represent stones or sludge. There is no biliary ductal dilatation. There are some in flammatory changes seen around the gallbladder in the right upper quadrant. There is gallbladder wal l thickening. Pancreas: Normal density, no abnormal calcifications or inflammatory process. Spleen: Normal. Adrenals: No masses seen. Kidneys: Normal size, contour and axis. No radiodense stones or obstructive uropathy. No masses seen. Abdominal Aorta: Abdominal portion non-dilated. Atherosclerosis is present. Vasculature: There appears to be a catheter in the left femoral vein with its tip in the proximal lef t external iliac vein. Bowel: There is diverticulosis seen in the sigmoid colon but no evidence of acute diverticulitis. Th ere is no evidence of appendicitis. Peritoneal Cavity: No ascites, collection or mesenteric inflammatory response. No free air. Lymph Nodes: Within normal limits. Bones: The patient has bilateral total hip replacements. Soft Tissues: There is a small fat containing umbilical hernia. There is a fat containing left ingui nal hernia. PELVIS: Bladder: Artifact from the patient's bilateral total hips limits evaluation. There is a Melo cathet er within the nondistended urinary bladder. Reproductive Organs: Not well visualized due to artifact from the patient's orthopedic hardware. Lymph Nodes: Within normal limits. Bones: Within normal limits for the patient's age. IMPRESSION: 1. There are gallstones present. The gallbladder is enlarged with gallbladder wall thickening and pe richolecystic inflammatory changes. The findings are most suggestive of acute cholecystitis. There is no biliary ductal dilatation. 2. Chronic findings in the abdomen and pelvis as described. RADIATION DOSE DELIVERED: 993.91mGy.cm Total DLP DATA REPOSITORY: All CT scans at this facility are submitted to the National Radiology Data Registry (NRDR) Dose Index Registry (DIR) with the [employer] ([employer]). RADIATION OPTIMIZATION: All CT scans at this facility use at least one of these dose optimization te chniques: automated exposure control; mA and/or kV adjustment per patient size (includes targeted exa ms where dose is matched to clinical indication); or iterative reconstruction.
[2022-05-05] MEDS: Norepinephrine in D5W 8 MG/250 ML BAG 9.553 MG IV (03:50)
--- NOTE | 2022-05-05 04:37 | DI.VRAD_ITS ---
PROCEDURE INFORMATION: Exam: CT Abdomen And Pelvis With Contrast Exam date and time: 05/05/2022 4:15 AM Age: 76 years old Clinical indication: Vomiting and other: Vomiting, septic, elevated bili TECHNIQUE: Imaging protocol: Computed tomography of the abdomen and pelvis with contrast. Radiation optimization: All CT scans at this facility use at least one of these dose optimization techniques: automated exposure control; mA and/or kV adjustment per patient size (includes targeted exams where dose is matched to clinical indication); or iterative reconstruction. Contrast material: OMNI 350; Contrast volume: 100 ml; Contrast route: INTRAVENOUS (IV); COMPARISON: Vascular^[facility] (Adult) 04/15/2018 10:47 AM FINDINGS: Lungs: Mild bibasilar atelectasis/scarring. Liver: Normal. Gallbladder and bile ducts: Cholelithiasis, with gallbladder enlargement, gallbladder wall thickening, and pericholecystic inflammatory stranding, compatible with acute cholecystitis. No biliary dilation. Pancreas: Normal. Spleen: Normal. Adrenal glands: Normal. No mass. Kidneys and ureters: Normal. Stomach and bowel: Colonic diverticulosis. Appendix: No evidence of appendicitis. Intraperitoneal space: Small amount of intraperitoneal free fluid. 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 Lymph nodes: Unremarkable. No enlarged lymph nodes. Urinary bladder: Urinary bladder decompressed by Melo catheter. Reproductive: Unremarkable as visualized. Bones/joints: Bilateral hip arthroplasties. Soft tissues: Normal. IMPRESSION: Cholelithiasis, with gallbladder enlargement, gallbladder wall thickening, and pericholecystic inflammatory stranding, compatible with acute cholecystitis. No biliary dilation. Dictated and Authenticated by: Jeremy Falk MD. Ordering:VICENTA Hess MD
[2022-05-05] MEDS: Hydrocortisone SOD SUC. 100 MG VIAL IVP (04:57)
[2022-05-05 04:59] LABS: Troponin I 81 ng/L (<or=60)
[2022-05-05 05:18] LABS: Bilirubin, Direct 1.2 mg/dL (0.0-0.2)
[2022-05-05] MEDS: Norepinephrine in D5W 8 MG/250 ML BAG 38.213 MG IV (10:25)
== END 2022-05-05 11:18 | disposition short-term general hospital (02) ==
PROVIDERS: Emergency Provider Student in an Organized Health Care Education/Training Program; PCP Internal Medicine
DX: A41.9 Sepsis, unspecified organism; R65.21 Severe sepsis with septic shock; I21.4 Non-ST elevation (NSTEMI) myocardial infarction; K81.0 Acute cholecystitis; E86.0 Dehydration; I10 Essential (primary) hypertension; R40.2410 Glasgow coma scale score 13-15, unspecified time; R00.0 Tachycardia, unspecified; I95.9 Hypotension, unspecified; B02.8 Zoster with other complications; R79.89 Other specified abnormal findings of blood chemistry; E80.7 Disorder of bilirubin metabolism, unspecified; J98.11 Atelectasis; Z20.822 Contact with and (suspected) exposure to COVID-19
CPT/HCPCS: 36415; 36556; 71275; 80053; 84145; 87040; 87637; 93005; 93308; 96361; 96365; 96366; 96367; 96368; 96375; 99291; 99292; 70450; 74177; 81003; 81015; 82248; 83605; 83735; 84484; 85025; 85610; 85730; 93010; J0133; J0456; J1720; J2543; J3490